=== PATIENT | male | born 2000 | race Caucasian/White ===

== ENCOUNTER 2022-08-09 09:18 | Emergency (ER) | payer OTHER, SELFPAY ==
--- NOTE | ~2022-08-09 | XR_ITS ---
EXAMINATION: XR lumbar spine 2-3V DATE: 08/09/2022 10:10 INDICATION: Low back pain TECHNIQUE: Anteroposterior and lateral views of the lumbar spine, and cone-down lateral view of the l umbosacral junction were obtained. COMPARISON: None. FINDINGS: No fracture, dislocation, or subluxation. The vertebral body heights, alignment, and interv ertebral disc spaces are normal. The paravertebral soft tissues are unremarkable. IMPRESSION: 1. No acute osseous abnormality. Reviewed, dictated and finalized at location L.
--- NOTE | 2022-08-09 09:30 | ED.BACK ---
HPI - Back Pain/Injury General Chief Complaint: Back Pain/Injury Stated Complaint: Low back pain Time Seen by Provider: 08/09/22 09:30 Source: patient Mode of arrival: ambulatory Limitations: no limitations History of Present Illness HPI Narrative: Eliseo is a 22-year-old male patient presenting to the clinic today with complaints of low back pain x2 days. He reports he is having pain to the mid low back. No known injury but does work in a warehouse doing heavy lifting. He denies any pain, numbness, or tingling to either lower extremity. Denies any radiation of pain. No loss of bowel or bladder. Denies saddle anesthesia. No difficulty walking other than having pain in the low back. States that pain is sharp rates it currently as 6/10. Pain is worse with bending and walking. Has not found any relief from taking Tylenol/ibuprofen/icy Hot. Related Data Allergies Allergy/AdvReac Type Severity Reaction Status Date / Time No Known Allergies Allergy Verified 08/09/22 09:59 Review of Systems Review of Systems: Pertinent positives per HPI. Patient denies any fever, chills, rash, headache, visual changes, dizziness, cough, runny nose, sore throat, shortness of breath, chest pain, palpitations, nausea, vomiting, diarrhea, constipation, abdominal pain, or any urinary issues. PMFSH Comments At the time of my signature, I reviewed and agree with the nursing past medical, surgical, social, and family history. There is no relevant family history pertinent to the patient complaint. Exam Narrative: General: Well-developed, well nourished, in no apparent distress Head: Normocephalic, atraumatic. Cardio: Regular rate and rhythm, s1 and s2 normal, no murmur appreciated. Resp: Clear to auscultation bilaterally, no rhonchi, rales, wheezing or rubs. Musculoskeletal: No deformity, non-tender to palpation, grossly normal range of motion, bilateral lower muscle strength strong and equal, negative for foot drop, patellar reflexes 2+ bilaterally, straight leg test positive bilaterally at approximately 70?, peripheral pulse strong, no edema, no cyanosis, normal gait and station Course Course Emergency Course: Portions of this record may have been created with voice recognition software. Level of Care: Express Care Visit Vital Signs Vital signs: Vital Signs Temperature 36.6 C 08/09/22 09:56 Pulse Rate 66 04/04/23 09:56 Respiratory Rate 16 08/09/22 09:56 Blood Pressure 121/72 08/09/22 09:56 Pulse Oximetry 100 08/09/22 09:56 Oxygen Delivery Room Air 08/09/22 09:56 Temperature 36.6 C 08/09/22 09:56 Pulse Rate 66 08/09/22 09:56 Respiratory Rate 16 08/09/22 09:56 Blood Pressure 121/72 08/09/22 09:56 Pulse Oximetry 100 08/09/22 09:56 Oxygen Delivery Room Air 08/09/22 09:56 Vital signs reviewed MDM - Back Pain/Injury MDM Narrative Medical decision making narrative: At the time of visit patient is resting comfortably on the exam table. X-ray was performed of the lumbar spine and was negative for any sign of fracture or malalignment. I suspect patient has a lumbar strain. Supportive measures were discussed with the patient he voiced understanding discharge instructions. Prescription for Flexeril and prednisone was sent to the pharmacy. Sedation precautions was reviewed with the patient he voiced understanding Differential Diagnosis Differential diagnosis: Likely lumbar radiculopathy, sciatica, strain of lumbar region, discitis and other (Disc herniation) Imaging Data Radiologist's impression: Close Lumbar Spine X-Ray (Signed) Den Goss - 08/09/22 [facility] [address] [address] XRay Report Signed Patient: Eliseo Murrell : 2000 MR#: [id number] Age/Sex: 22 / M Acct:[id number] Loc: [facility]? ? ADM Date: 08/09/22Attending Dr: Ordering Physician: Feliciano Vergara APRN
[2022-08-09 09:56] VITALS: BP 121/72; PULSE 66; RESP 16; TEMP 36.6; O2SAT 100
== END 2022-08-09 10:34 | disposition home or self-care (01) ==
PROVIDERS: Emergency Provider Nurse Practitioner Family; PCP Family Medicine
DX: S39.012A Strain of muscle, fascia and tendon of lower back, initial encounter (principal); X58.XXXA Exposure to other specified factors, initial encounter
CPT/HCPCS: 72100; 99213; G0463